=== PATIENT | female | born 1990 | race Two or more races ===

== ENCOUNTER 2022-05-26 09:38 | Outpatient (CLI) | payer OTHER | END 2022-05-26 10:48 | disposition home or self-care (01) | LOC: PRENATAL 09:38 | PROVIDERS: ATTEND Obstetrics & Gynecology Maternal & Fetal Medicine | DX: O35.9XX0 Maternal care for (suspected) fetal abnormality and damage, unspecified, not applicable or unspecified (principal); O35.3XX0 Maternal care for (suspected) damage to fetus from viral disease in mother, not applicable or unspecified; Z3A.21 21 weeks gestation of pregnancy ==

== ENCOUNTER 2022-08-19 13:00 | Outpatient (CLI) | payer OTHER | END 2022-08-19 15:25 | disposition home or self-care (01) | LOC: PRENATAL 13:00 | PROVIDERS: ATTEND Obstetrics & Gynecology Maternal & Fetal Medicine | DX: O26.849 Uterine size-date discrepancy, unspecified trimester (principal); O36.8199 Decreased fetal movements, unspecified trimester, other fetus; Z3A.33 33 weeks gestation of pregnancy ==

== ENCOUNTER 2022-10-08 08:08 | Outpatient (CLI) | payer OTHER ==
[~2022-10-08] VITALS: Ht 175.3 cm; Wt 98.4 kg
[2022-10-08] MEDS ORDERED: PRENATAL VITAM1 EAC4 (09:42)
== END 2022-10-08 13:26 | disposition home or self-care (01) ==
LOC: OBS/DEL 08:08 → LDR 08:08 → SURH 08:08 → OBS/DEL 13:26 → LDR 13:26
PROVIDERS: ATTEND Student in an Organized Health Care Education/Training Program
DX: O26.893 Other specified pregnancy related conditions, third trimester (principal); Z3A.40 40 weeks gestation of pregnancy

== ENCOUNTER 2022-10-15 07:45 | Inpatient (IN) | payer OTHER ==
[~2022-10-15] VITALS: Ht 172.7 cm; Wt 63.0 kg
[~2022-10-15 07:45] MED LIST: PRENATAL VITAM1 EAC4
== END 2022-10-18 14:58 | disposition home or self-care (01) | DRG 807 ==
LOC: LDR 07:45 → OB/GYN 10-16 12:51
PROVIDERS: ADMIT Obstetrics & Gynecology; ATTEND Obstetrics & Gynecology
PROC: 3E0P7VZ Introduction of Hormone into Female Reproductive, Via Natural or Artificial Opening (ICD-10-PCS; 2022-10-15)
PROC: 4A1HXCZ Monitoring of Products of Conception, Cardiac Rate, External Approach (ICD-10-PCS; 2022-10-15)
PROC: 10E0XZZ Delivery of Products of Conception, External Approach (ICD-10-PCS; principal; 2022-10-16)
PROC: 0HQ9XZZ Repair Perineum Skin, External Approach (ICD-10-PCS; 2022-10-16)
PROC: 0UQMXZZ Repair Vulva, External Approach (ICD-10-PCS; 2022-10-16)
PROC: 3E033VJ Introduction of Other Hormone into Peripheral Vein, Percutaneous Approach (ICD-10-PCS; 2022-10-16)
DX: O70.0 First degree perineal laceration during delivery (principal); Z37.0 Single live birth; O48.0 Post-term pregnancy; Z3A.41 41 weeks gestation of pregnancy; Z20.822 Contact with and (suspected) exposure to COVID-19